=== PATIENT | male | born 1975 | race Two or more races ===

== ENCOUNTER 2017-10-11 09:22 | Inpatient (IN) | payer OTHER ==
[~2017-10-11] VITALS: Ht 182.9 cm; Wt 126.6 kg
[2017-10-17] MEDS ORDERED: PERCOCET 5-3251 EACH PO (11:32)
[2017-10-17] MEDS ORDERED: PROTONIX40 MG PO (11:33)
[2017-10-17] MEDS ORDERED: INTESTINEX680 M1 PO (11:33)
== END 2017-10-17 14:16 | disposition home or self-care (01) | DRG 331 ==
LOC: O/R 10-14 07:00 → RECOVERY 10-14 09:30 → SURH 10-14 13:39
PROVIDERS: Surgery
PROC: 07TC4ZZ Resection of Pelvis Lymphatic, Percutaneous Endoscopic Approach (ICD-10-PCS; 2017-10-14)
PROC: 0DJD8ZZ Inspection of Lower Intestinal Tract, Via Natural or Artificial Opening Endoscopic (ICD-10-PCS; 2017-10-14)
PROC: 4A033R1 Measurement of Arterial Saturation, Peripheral, Percutaneous Approach (ICD-10-PCS; 2017-10-14)
PROC: 4A12X4Z Monitoring of Cardiac Electrical Activity, External Approach (ICD-10-PCS; 2017-10-14)
PROC: 0DTN4ZZ Resection of Sigmoid Colon, Percutaneous Endoscopic Approach (ICD-10-PCS; principal; 2017-10-14 09:30)
DX: C18.7 Malignant neoplasm of sigmoid colon (principal); G47.33 Obstructive sleep apnea (adult) (pediatric); E66.8 Other obesity

== ENCOUNTER 2017-11-21 06:00 | Day surgery (SDC) | payer OTHER ==
[~2017-11-21 06:00] MED LIST: INTESTINEX680 M1 PO; PERCOCET 5-3251 EACH PO; PROTONIX40 MG PO
[2017-11-21] MEDS ORDERED: PERCOCET 5-3251 EACH PO (09:23)
== END 2017-11-21 12:15 | disposition home or self-care (01) ==
LOC: CIR.AMB 06:00
DX: C18.7 Malignant neoplasm of sigmoid colon (principal)
CPT/HCPCS: 36561; C1751

== ENCOUNTER 2018-10-07 08:40 | Day surgery (SDC) | payer OTHER | END 2018-10-07 14:40 | disposition home or self-care (01) | LOC: AMB-ENDOS 08:40 | DX: K64.8 Other hemorrhoids (principal) ==

== ENCOUNTER 2022-01-18 05:45 | Day surgery (SDC) | payer OTHER ==
[2022-01-18] MEDS ORDERED: ULTRACET PO (09:08)
== END 2022-01-18 10:40 | disposition home or self-care (01) ==
LOC: CIR.AMB 05:45
PROVIDERS: ATTEND Surgery
DX: C18.7 Malignant neoplasm of sigmoid colon (principal); G47.33 Obstructive sleep apnea (adult) (pediatric); E66.9 Obesity, unspecified; Z53.8 Procedure and treatment not carried out for other reasons; Z88.8 Allergy status to other drugs, medicaments and biological substances; Z86.16 Personal history of COVID-19; Z99.89 Dependence on other enabling machines and devices; Z92.21 Personal history of antineoplastic chemotherapy